=== PATIENT | male | born 1980 | race Caucasian/White ===

== ENCOUNTER 2016-10-27 04:25 | Emergency (ER) | payer OTHER, BC ==
--- NOTE | 2016-10-27 06:50 | ED CLINICAL REPORT ---
Clinical Report - Physicians/Mid Levels [facility] [address] [place] [address] 10/27/2016 4:29 Patient: ROSALVA MARQUIS Time Seen: 05:05. Arrived- By private vehicle. Historian- patient. HISTORY OF PRESENT ILLNESS Chief Complaint: ABDOMINAL PAIN. At its maximum, severity described as moderate. When seen in the E.D., severity described as moderate. Modifying factors. Not worsened by anything. Not relieved by anything. It is described as "pain" and it is described as located in the right flank and the right upper quadrant. This started today and is still present. The patient has had nausea. No loss of appetite, vomiting or diarrhea. Similar symptoms previously: Several times. ( Pt has been worked up previously, but no cause of his pain has ever been identified.). Recent medical care: Not recently seen/assessed. REVIEW OF SYSTEMS No constipation, black stools, hematemesis, difficulty with urination or pain with urination. No urinary frequency, bloody stools, fever, headache or sore throat. No blurred vision, chest pain, difficulty breathing, cough or joint pain. No skin rash, chills or back pain. All systems otherwise negative, except as recorded above. PAST HISTORY Problems: no known problems. Additional Surgeries: ACL reconstuction . Medications: None. Allergies: No Known Drug Allergy. SOCIAL HISTORY Smoker- current status unknown. No alcohol use or drug use. ADDITIONAL NOTES The nursing notes have been reviewed. PHYSICAL EXAM Vital Signs: 10/27/2016 04:56 BP: 149/85. HR: 70. RR: 16. O2 saturation: 99%. Temp: 98.1 F. Have been reviewed. Appearance: Alert. Oriented X3. No acute distress. Eyes: Pupils equal, round and reactive to light. Eyes normal inspection. ENT: Nose normal. Neck: Normal inspection. Neck supple. CVS: Normal heart rate and rhythm. Heart sounds normal. Pulses normal. Respiratory: No respiratory distress. Breath sounds normal. Abdomen: Soft. Moderate tenderness in the right upper quadrant. No guarding or rebound tenderness. Back: Normal inspection. No CVA tenderness. Skin: Skin warm and dry. Normal skin color. No rash. Normal skin turgor. Extremities: Extremities exhibit normal ROM. No lower extremity edema. Neuro: Oriented X 3. No motor deficit. No sensory deficit. LABS, X-RAYS, AND EKG Laboratory Tests: CBC w Diff: (RASHMI: 10/27/2016 06:17) ( MsgRcvd 10/27/2016 06:33) Final results Test Result Flag Units (Reference) WHITE BLOOD COUNT 11.4 K/uL (4.5-11.5) RED BLOOD COUNT 5.48 M/uL (4.50-5.90) HEMOGLOBIN 16.7 gm/dL (13.5-17.5) HEMATOCRIT 50.1 % (41.0-53.0) MEAN CELL VOLUME 91 fL (80-100) MEAN CORPUSCULAR HGB 30 pg (26-34) MEAN CORPUSCULAR HGB CONC 33 g/dL (31-37) RED CELL DISTRIBUTION WIDTH 13.3 % (11.6-14.8) PLATELET COUNT 239 K/uL (150-400) NEUTROPHIL % 70.1 % (50-75) LYMPH % 20.0 L % (25-40) MONO % 6.2 % (3-14) EOSINOPHIL % 2.9 % (0-4) BASOPHIL % 0.8 % (0-2) Amylase: (RASHMI: 10/27/2016 06:17) ( MsgRcvd 10/27/2016 06:42) Final results Test Result Flag Units (Reference) GLUCOSE 111 H mg/dL (70-110) BUN 15 mg/dL (7-18) CREATININE 1.0 mg/dL (0.6-1.3) Estimated GFR >60 mL/min Estimated GFR- >60 mL/min Note: Persistent reduction over 3 months in eGFR<60 mL/min/1.73 m2 defines CKD. Patients with eGFR values>=60 mL/min/1.73 m2 may also have CKD if evidence ofpersistent proteinuria. Additional information may be foundat www.[email or web address].org. SODIUM 142 mmol/L (136-145) POTASSIUM 4.2 mmol/L (3.5-5.1) CHLORIDE 104 mmol/L (98-107) CARBON DIOXIDE 29 mmol/L (21-32) CALCIUM 8.9 mg/dL (8.5-10.1) TOTAL PROTEIN 7.7 g/dL (6.4-8.2) ALBUMIN 4.3 g/dL (3.3-5.0) BILIRUBIN, TOTAL 0.4 mg/dL (0.0-1.0) ALKALINE PHOSPHATASE 64 U/L (46-116) AST (SGOT) 17 U/L (15-37) ALT (SGPT) 24 U/L (12-78) LIPASE 165 U/L (73-393) AMYLASE 46 U/L (25-115) . Pulse Oximetry: 10/27/2016 04:56 O2 saturation: 99%. (FIO2 - room air). Interpretation: normal. PROGRESS AND PROCEDURES Course of Care: PT was worked up for his pain, and given Toradol and Zofran for symptomatic relief. I did review pt's records, and found that previously, a gall bladder US had shown a GB that was enlarged, but not inflamed, and acalculous. Pt's labs were negative today. I did d/w him that follow-up with the surgeons may be helpful in sorting out what is going on. We have discussed the possibility of Sphincter of Oddi dysfunction, among other things. Patient counseled in person regarding the patient's stable condition, test results, diagnosis and need for additional testing and follow-up. Concerns were addressed. Old medical records reviewed. Disposition: Discharged. Condition: stable and improved. CLINICAL IMPRESSION Acute right upper quadrant abdominal pain of unknown cause. INSTRUCTIONS Drink plenty of fluids. (Your labs are normal today. You may have dysfunction/spasm of the muscle that controls bile flow from the gallbladder. Sometimes, this can cause strong pain in the area of the liver and gallbladder, but normal labs and ultrasound. Surgeons can diagnose this with specialized testing, as we discussed.). Warnings: Further evaluation is necessary. GENERAL WARNINGS: Return or contact your physician immediately if your condition worsens or changes unexpectedly, if not improving as expected, or if other problems arise. Prescription Medications: Hydrocodone/APAP 5mg / 325mg: take 1-2 orally every 6 hours as needed for pain. Dispense fifteen (15). No refill. Zofran (orally disintegrating tablets) 4 mg: take 1-2 orally every 6 hours as needed for nausea. Dispense ten (10). No refill. Substitution is permissible. Understanding of the discharge instructions verbalized by patient. Follow-up with: Lucio Hoang MD, General Surgeon, , [facility], [address] [place] [address] Follow up. Call for the next available appointment. Reason for referral: Recurrent right upper quadrant pain. (Electronically signed by Tianna Akins MD 10/31/2016 21:58)
--- NOTE | 2016-10-27 06:50 | ED ORDER SUMMARY ---
..... Patient: ROSALVA MARQUIS OrderSheet [facility] VisitID: [id number] [place] [address] 36y, M Registration Date/Time: 10/27/2016 ORDER SHEET Weight: 79.3 kg (stated) Allergies: No Known Drug Allergy GENERAL ORDERS: CBC w Diff Urgent (06:08 10/27/2016 Doris KNIGHT) (6:20 Miguel Wick.N.) CMP Urgent (06:10/27/2016 Doris KNIGHT) (6:20 Miguel R.N.) Lipase Urgent (06:10/27/2016 Doris KNIGHT) (6:20 Miguel Wick.N.) Amylase Urgent (06:10/27/2016 Doris KNIGHT) (6:20 Miguel R.N.) MEDICATION ORDERS: IV FLUIDS: Toradol IV 30 mg (NOW) (06:08 10/27/2016 Doris KNIGHT) (6:21 Miguel R.N.) Zofran IV 4 mg (NOW) (06:08 10/27/2016 Doris KNIGHT) (6:21 Miguel R.N.) IV Saline Lock (06:08 10/27/2016 Doris KNIGHT) (6:21 Miguel Wick.N.) ORDER SHEET NOTES: [Electronically signed by Jagdish Carlisle R.N. (07:04 10/27/2016)] [Electronically signed by Tianna Akins MD (21:58 10/31/2016)] [Electronically locked/signed by Jagdish Carlisle R.N. (07:04 10/27/2016)]
--- NOTE | 2016-10-27 06:50 | ED NURSING NOTES ---
Clinical Report - Nurses [facility] [address] [place] [address] 10/27/2016 4:29 Patient: ROSALVA MARQUIS TRIAGE Triage time 0456. Acuity: LEVEL 3. Chief Complaint: ABDOMINAL PAIN and NAUSEA. --05:03 Jagdish Carlisle R.N. 04:56 10/27/16. BP: 149/85. HR: 70. RR: 16. O2 saturation: 99%. Temp: 98.1 F. Pain level now 810. --05:03 Jagdish Carlisle R.N. Weight: 79.3 kg stated. Height/Length: 70 inches Per Patient. BMI: 25.1. --04:59 Jagdish Carlisle R.N. Medications None. --04:58 Jagdish Carlisle R.N. Allergies No Known Drug Allergy. --04:58 Jagdish Carlisle R.N. History Arrived by private vehicle. Historian: patient. Onset. (about 6 hours). ( pt is delusional and nonsensical while trying to relate s/sx's of what is going on. pt states that his medications keep disappearing. pt states we are being harvested by technology. pt states it symptoms first started when he was in a foreign [place], [place] their homes, and now it won't go away.). He has had nausea. Last oral intake by patient was (8 hours ago). SOCIAL HX: Heavy tobacco smoker- 1 pack per day. FALL RISK ASSESSMENT: Fall risk assessment completed. No fall risk identified. NUTRITIONAL RISK ASSESSMENT: The nutritional risk assessment revealed no deficiencies. FUNCTIONAL ASSESSMENT: Functional assessment: no impairments noted. LEARNING NEEDS ASSESSMENT: The learning needs assessment revealed no barriers. SKIN INTEGRITY ASSESSMENT: Skin integrity risk assessment completed. No skin integrity risk identified. --05:03 Jagdish Carlisle R.N. PROBLEMS: Abdominal Pain. --04:58 Jagdish Carlisle R.N. ADDITIONAL SURGERIES: ACL reconstuction . --04:58 Jagdish Carlisle R.N. Interventions ID band on patient. --05:03 Jagdish Carlisle R.N. PHYSICAL ASSESSMENT Ambulatory to room. GENERAL / NEURO / PSYCH: Alert. Oriented X 4. Appears in no acute distress. HEENT: Mucous membranes are pink. RESPIRATORY: Respirations not labored. Breath sounds within normal limits. CVS: Normal sinus rhythm noted. Capillary refill less than 2 seconds. GI / : Abdomen soft and nontender. SKIN: Skin is warm and dry. --05:04 Jagdish Carlisle R.N. NURSING PROGRESS NOTES Patient gowned. Head of bed elevated. Reassurance given. Patient identifiers checked. Call light placed in reach. Bed placed in lowest position. Brakes of bed on. --05:04 Jagdish Carlisle R.N. 06:21 10/27/2016 Site #1 started via IV in the right antecubital space with an 20g angiocath, with aseptic technique and good blood return; one attempt. Blood drawn: rainbow set. Labeled in the presence of the patient and sent to the lab. Saline lock flushed with saline. --06:21 Jagdish Carlisle R.N. 06:21 10/27/2016 Toradol IVP 30 mg given. via site #1. Allergies verified and confirmed 5 rights. IV patency established. IV site checked: no pain, redness, or swelling. IV flushed thoroughly pre- and post-medication administration. --06:21 Jagdish Carlisle R.N. 06:21 10/27/2016 Zofran (Ondansetron HCl) IVP 4 mg given. via site #1. Allergies verified and confirmed 5 rights. IV patency established. IV site checked: no pain, redness, or swelling. IV flushed thoroughly pre- and post-medication administration. --06:21 Jagdish Carlisle R.N. DISPOSITION / DISCHARGE Departure time: 654. No learning barriers present. Discharge instructions provided and reviewed with the patient. Reviewed warnings. Reviewed medication(s). Treatments reviewed. Reviewed referrals. Written instructions provided in [place]. The patient was discharged by the physician. He was discharged home and unaccompanied at time of discharge. He left the Emergency Department ambulatory and via private vehicle. Patient driving. --07:04 Jagdish Carlisle R.N. 07:03 10/27/16. BP: 144/84. HR: 77. RR: 16. O2 saturation: 99%. Temp: 98 F. Pain level now 11/29. --07:04 Jagdish Carlisle R.N. Locked/Released at 10/27/2016 7:04 by Jagdish Carlisle R.N.
--- NOTE | 2016-10-27 06:50 | ED ORDER SUMMARY ---
..... Patient: ROSALVA MARQUIS OrderSheet [facility] VisitID: [id number] [place] [address] 36y, M Registration Date/Time: 10/27/2016 ORDER SHEET Weight: 79.3 kg (stated) Allergies: No Known Drug Allergy GENERAL ORDERS: CBC w Diff Urgent (06:08 10/27/2016 Doris KNIGHT) (6:20 Miguel Wick.N.) CMP Urgent (06:10/27/2016 Doris KNIGHT) (6:20 Miguel R.N.) Lipase Urgent (06:10/27/2016 Doris KNIGHT) (6:20 Miguel Wick.N.) Amylase Urgent (06:10/27/2016 Doris KNIGHT) (6:20 Miguel R.N.) MEDICATION ORDERS: IV FLUIDS: Toradol IV 30 mg (NOW) (06:08 10/27/2016 Doris KNIGHT) (6:21 Miguel R.N.) Zofran IV 4 mg (NOW) (06:08 10/27/2016 Doris KNIGHT) (6:21 Miguel R.N.) IV Saline Lock (06:08 10/27/2016 Doris KNIGHT) (6:21 Miguel Wick.N.) ORDER SHEET NOTES: [Electronically signed by Jagdish Carlisle R.N. (07:04 10/27/2016)] [Electronically signed by Tianna Akins MD (21:58 10/31/2016)] [Electronically locked/signed by Jagdish Carlisle R.N. (07:04 10/27/2016)]
--- NOTE | 2016-10-27 06:50 | ED NURSING NOTES ---
Clinical Report - Nurses [facility] [address] [place] [address] 10/27/2016 4:29 Patient: ROSALVA MARQUIS TRIAGE Triage time 0456. Acuity: LEVEL 3. Chief Complaint: ABDOMINAL PAIN and NAUSEA. --05:03 Jagdish Carlisle R.N. 04:56 10/27/16. BP: 149/85. HR: 70. RR: 16. O2 saturation: 99%. Temp: 98.1 F. Pain level now 810. --05:03 Jagdish Carlisle R.N. Weight: 79.3 kg stated. Height/Length: 70 inches Per Patient. BMI: 25.1. --04:59 Jagdish Carlisle R.N. Medications None. --04:58 Jagdish Carlisle R.N. Allergies No Known Drug Allergy. --04:58 Jagdish Carlisle R.N. History Arrived by private vehicle. Historian: patient. Onset. (about 6 hours). ( pt is delusional and nonsensical while trying to relate s/sx's of what is going on. pt states that his medications keep disappearing. pt states we are being harvested by technology. pt states it symptoms first started when he was in a foreign country, invading their homes, and now it won't go away.). He has had nausea. Last oral intake by patient was (8 hours ago). SOCIAL HX: Heavy tobacco smoker- 1 pack per day. FALL RISK ASSESSMENT: Fall risk assessment completed. No fall risk identified. NUTRITIONAL RISK ASSESSMENT: The nutritional risk assessment revealed no deficiencies. FUNCTIONAL ASSESSMENT: Functional assessment: no impairments noted. LEARNING NEEDS ASSESSMENT: The learning needs assessment revealed no barriers. SKIN INTEGRITY ASSESSMENT: Skin integrity risk assessment completed. No skin integrity risk identified. --05:03 Jagdish Carlisle R.N. PROBLEMS: Abdominal Pain. --04:58 Jagdish Carlisle R.N. ADDITIONAL SURGERIES: ACL reconstuction . --04:58 Jagdish Carlisle R.N. Interventions ID band on patient. --05:03 Jagdish Carlisle R.N. PHYSICAL ASSESSMENT Ambulatory to room. GENERAL / NEURO / PSYCH: Alert. Oriented X 4. Appears in no acute distress. HEENT: Mucous membranes are pink. RESPIRATORY: Respirations not labored. Breath sounds within normal limits. CVS: Normal sinus rhythm noted. Capillary refill less than 2 seconds. GI / : Abdomen soft and nontender. SKIN: Skin is warm and dry. --05:04 Jagdish Carlisle R.N. NURSING PROGRESS NOTES Patient gowned. Head of bed elevated. Reassurance given. Patient identifiers checked. Call light placed in reach. Bed placed in lowest position. Brakes of bed on. --05:04 Jagdish Carlisle R.N. 06:21 10/27/2016 Site #1 started via IV in the right antecubital space with an 20g angiocath, with aseptic technique and good blood return; one attempt. Blood drawn: rainbow set. Labeled in the presence of the patient and sent to the lab. Saline lock flushed with saline. --06:21 Jagdish Carlisle R.N. 06:21 10/27/2016 Toradol IVP 30 mg given. via site #1. Allergies verified and confirmed 5 rights. IV patency established. IV site checked: no pain, redness, or swelling. IV flushed thoroughly pre- and post-medication administration. --06:21 Jagdish Carlisle R.N. 06:21 10/27/2016 Zofran (Ondansetron HCl) IVP 4 mg given. via site #1. Allergies verified and confirmed 5 rights. IV patency established. IV site checked: no pain, redness, or swelling. IV flushed thoroughly pre- and post-medication administration. --06:21 Jagdish Carlisle R.N. DISPOSITION / DISCHARGE Departure time: 654. No learning barriers present. Discharge instructions provided and reviewed with the patient. Reviewed warnings. Reviewed medication(s). Treatments reviewed. Reviewed referrals. Written instructions provided in [place]. The patient was discharged by the physician. He was discharged home and unaccompanied at time of discharge. He left the Emergency Department ambulatory and via private vehicle. Patient driving. --07:04 Jagdish Carlisle R.N. 07:03 10/27/16. BP: 144/84. HR: 77. RR: 16. O2 saturation: 99%. Temp: 98 F. Pain level now 11/29. --07:04 Jagdish Carlisle R.N. Locked/Released at 10/27/2016 7:04 by Jagdish Carlisle R.N.
--- NOTE | 2016-10-31 21:59 | ED DISCHARGE INSTRUCTIONS ---
Patient: ROSALVA MARQUIS General Instructions [facility] VisitID: [id number] [address] [place] [place] [id number] 36y, M Registration Date/Time: 10/27/2016 Acute right upper quadrant abdominal pain of unknown cause. INSTRUCTIONS Drink plenty of fluids. (Your labs are normal today. You may have dysfunction/spasm of the muscle that controls bile flow from the gallbladder. Sometimes, this can cause strong pain in the area of the liver and gallbladder, but normal labs and ultrasound. Surgeons can diagnose this with specialized testing, as we discussed.). Warnings: Further evaluation is necessary. GENERAL WARNINGS: Return or contact your physician immediately if your condition worsens or changes unexpectedly, if not improving as expected, or if other problems arise. Prescription Medications: Hydrocodone/APAP 5mg / 325mg: take 1-2 orally every 6 hours as needed for pain. Dispense fifteen (15). No refill. Zofran (orally disintegrating tablets) 4 mg: take 1-2 orally every 6 hours as needed for nausea. Dispense ten (10). No refill. Substitution is permissible. Understanding of the discharge instructions verbalized by patient. Follow-up with: Lucio Hoang MD, General Surgeon, , [facility], [address] [place] [address] Follow up. Call for the next available appointment. Reason for referral: Recurrent right upper quadrant pain. ADDITIONAL INFORMATION Abdominal Pain,Uncertain Cause [Male] Based on your visit today, the exact cause of your abdominalpain is not clear. Your exam and tests do not indicate a dangerous cause at this time. However, the signs of a serious problem may take more time to appear. Although your evaluation was reassuring today, sometimes early in the course of many conditions, exam and lab tests can appear normal. Therefore, it is important for you to watch for any new symptoms or worsening of your condition. Causes It may not be obvious what caused your symptoms. Pay attention to things that do seem to make your symptoms worse or better and discuss this with your doctor when you follow up. Diagnosis The evaluation of abdominal pain in the emergency department may onlyrequire an exam by the doctor or it may include blood, urine or imaging studies, depending on many factors. Sometimes exams and tests can identify a cause but in many cases, a clear cause is not found. Further testing at follow up visits may help to suggest a clear diagnosis. Home Care Rest as much as possible until your next exam. Try to avoid any medications (unless otherwise directed by your doctor), foods, activities, or other factors that you may have contributed to your symptoms. Try to eat foods that you know that you have tolerated well in the past. Certain diets may be recommended for some conditions that cause abdominal pain. However, since the cause of your symptoms may not be clear, discuss your diet more with your primary care provider or specialist for further recommendations. Eating several small meals per day as opposed to 2 or 3 larger meals may help. Monitor closely for anything that may make your symptoms worse or better. Pay close attention to symptoms below that may indicate worsening of your condition. Follow Up and Precautions See your doctoras instructed or sooneror if your symptoms are not improving.In some cases, you may need more testing. When to Seek Medical Attention Contact your doctor or see medical attention ifany of the following occur: Pain is becoming worse You are unable to take your medications due to excessive vomiting Swelling of the abdomen Fever of 100.4F (38C) or higher, or as directed by your health care provider Blood in vomit or bowel movements (dark red or black color) Jaundice (yellow color of eyes and skin) New onset of weakness, dizziness or fainting New onset of chest, arm, back, neck or jaw pain You have been given the following additional information: Abdominal Pain, Unknown Cause, (Male) (Electronically signed by Tianna Akins MD 10/31/2016 21:58)
--- NOTE | 2016-10-31 21:59 | ED MAR SUMMARY ---
..... Medication Administration Record [facility] [address] [place] [address] Patient: ROSALVA MARQUIS Visit ID: [id number] 36y, M Weight: 79.3 kg Height/Length: 70 in BMI: 25.1 ALLERGIES: No Known Drug Allergy Given 06:10/27/2016 Jagdish Carlisle R.N. Medication Administered: TORADOL [IVP], Dose: 30 mg IVP, Site: #1 right AC. Medication Ordered: Toradol IV 30 mg (NOW). Given 06:10/27/2016 Jagdish Carlisle R.N. Medication Administered: ZOFRAN [IVP] (ONDANSETRON HCL), Dose: 4 mg IVP, Site: #1 right AC. Medication Ordered: Zofran IV 4 mg (NOW).
--- NOTE | 2016-10-31 21:59 | ED MED RECONCILIATION SUMMARY ---
Patient: ROSALVA MARQUIS Medication Reconciliation Report [facility] VisitID: [id number] [place] [address] 36y, M Registration Date/Time: 10/27/2016 Weight: 79.3 kg Height/Length: 70 in. BMI: 25.1 ALLERGIES: No Known Drug Allergy The patient's Home Medications are listed below: NONE. The source(s) of the original Home Medication information: Not obtained. The following Medications were given to the patient in the Emergency Department: Toradol [IVP] IVP 30 mg, administered: 10/27/2016 6:21:00 AM Zofran [IVP] IVP 4 mg, administered: 10/27/2016 6:21:00 AM The following Medications were prescribed to the patient: Hydrocodone/APAP 5mg / 325mg: take 1-2 orally every 6 hours as needed for pain. Dispense fifteen (15). No refill. -- Tianna Akins MD Zofran (orally disintegrating tablets) 4 mg: take 1-2 orally every 6 hours as needed for nausea. Dispense ten (10). No refill. Substitution is permissible. -- Tianna Akins MD
--- NOTE | 2016-10-31 21:59 | ED MAR SUMMARY ---
..... Medication Administration Record [facility] [address] [place] [address] Patient: ROSALVA MARQUIS Visit ID: [id number] 36y, M Weight: 79.3 kg Height/Length: 70 in BMI: 25.1 ALLERGIES: No Known Drug Allergy Given 06:10/27/2016 Jagdish Carlisle R.N. Medication Administered: TORADOL [IVP], Dose: 30 mg IVP, Site: #1 right AC. Medication Ordered: Toradol IV 30 mg (NOW). Given 06:10/27/2016 Jagdish Carlisle R.N. Medication Administered: ZOFRAN [IVP] (ONDANSETRON HCL), Dose: 4 mg IVP, Site: #1 right AC. Medication Ordered: Zofran IV 4 mg (NOW).
--- NOTE | 2016-10-31 21:59 | ED DISCHARGE INSTRUCTIONS ---
Patient: ROSALVA MARQUIS General Instructions [facility] VisitID: [id number] Leyda Wood [place], [place] [id number] 36y, M Registration Date/Time: 10/27/2016 Acute right upper quadrant abdominal pain of unknown cause. INSTRUCTIONS Drink plenty of fluids. (Your labs are normal today. You may have dysfunction/spasm of the muscle that controls bile flow from the gallbladder. Sometimes, this can cause strong pain in the area of the liver and gallbladder, but normal labs and ultrasound. Surgeons can diagnose this with specialized testing, as we discussed.). Warnings: Further evaluation is necessary. GENERAL WARNINGS: Return or contact your physician immediately if your condition worsens or changes unexpectedly, if not improving as expected, or if other problems arise. Prescription Medications: Hydrocodone/APAP 5mg / 325mg: take 1-2 orally every 6 hours as needed for pain. Dispense fifteen (15). No refill. Zofran (orally disintegrating tablets) 4 mg: take 1-2 orally every 6 hours as needed for nausea. Dispense ten (10). No refill. Substitution is permissible. Understanding of the discharge instructions verbalized by patient. Follow-up with: Lucio Hoang MD, General Surgeon, , [facility], [address] [place] [address] Follow up. Call for the next available appointment. Reason for referral: Recurrent right upper quadrant pain. ADDITIONAL INFORMATION Abdominal Pain,Uncertain Cause [Male] Based on your visit today, the exact cause of your abdominalpain is not clear. Your exam and tests do not indicate a dangerous cause at this time. However, the signs of a serious problem may take more time to appear. Although your evaluation was reassuring today, sometimes early in the course of many conditions, exam and lab tests can appear normal. Therefore, it is important for you to watch for any new symptoms or worsening of your condition. Causes It may not be obvious what caused your symptoms. Pay attention to things that do seem to make your symptoms worse or better and discuss this with your doctor when you follow up. Diagnosis The evaluation of abdominal pain in the emergency department may onlyrequire an exam by the doctor or it may include blood, urine or imaging studies, depending on many factors. Sometimes exams and tests can identify a cause but in many cases, a clear cause is not found. Further testing at follow up visits may help to suggest a clear diagnosis. Home Care Rest as much as possible until your next exam. Try to avoid any medications (unless otherwise directed by your doctor), foods, activities, or other factors that you may have contributed to your symptoms. Try to eat foods that you know that you have tolerated well in the past. Certain diets may be recommended for some conditions that cause abdominal pain. However, since the cause of your symptoms may not be clear, discuss your diet more with your primary care provider or specialist for further recommendations. Eating several small meals per day as opposed to 2 or 3 larger meals may help. Monitor closely for anything that may make your symptoms worse or better. Pay close attention to symptoms below that may indicate worsening of your condition. Follow Up and Precautions See your doctoras instructed or sooneror if your symptoms are not improving.In some cases, you may need more testing. When to Seek Medical Attention Contact your doctor or see medical attention ifany of the following occur: Pain is becoming worse You are unable to take your medications due to excessive vomiting Swelling of the abdomen Fever of 100.4F (38C) or higher, or as directed by your health care provider Blood in vomit or bowel movements (dark red or black color) Jaundice (yellow color of eyes and skin) New onset of weakness, dizziness or fainting New onset of chest, arm, back, neck or jaw pain You have been given the following additional information: Abdominal Pain, Unknown Cause, (Male) (Electronically signed by Tianna Akins MD 10/31/2016 21:58)
--- NOTE | 2016-10-31 21:59 | ED MED RECONCILIATION SUMMARY ---
Patient: ROSALVA MARQUIS Medication Reconciliation Report [facility] VisitID: [id number] [place] [address] 36y, M Registration Date/Time: 10/27/2016 Weight: 79.3 kg Height/Length: 70 in. BMI: 25.1 ALLERGIES: No Known Drug Allergy The patient's Home Medications are listed below: NONE. The source(s) of the original Home Medication information: Not obtained. The following Medications were given to the patient in the Emergency Department: Toradol [IVP] IVP 30 mg, administered: 10/27/2016 6:21:00 AM Zofran [IVP] IVP 4 mg, administered: 10/27/2016 6:21:00 AM The following Medications were prescribed to the patient: Hydrocodone/APAP 5mg / 325mg: take 1-2 orally every 6 hours as needed for pain. Dispense fifteen (15). No refill. -- Tianna Akins MD Zofran (orally disintegrating tablets) 4 mg: take 1-2 orally every 6 hours as needed for nausea. Dispense ten (10). No refill. Substitution is permissible. -- Tianna Akins MD
== END 2016-10-27 06:57 | disposition home or self-care (01) ==
LOC: ED SRH 04:25
DX: R10.11 Right upper quadrant pain (principal)
CPT/HCPCS: 90100; 92235; 92530; 95059